=== PATIENT | female | born 1935 | race Caucasian/White ===

== ENCOUNTER → 2017-10-23 17:55 | Outpatient (CLI) | payer MEDICARE, SELFPAY | PROVIDERS: Family Provider Family Medicine; PCP Family Medicine; Visit Provider Family Medicine | DX: M54.5 Low back pain (principal); R30.0 Dysuria | CPT/HCPCS: 87086; 87088 ==

== ENCOUNTER → 2018-04-01 17:44 | Outpatient (CLI) | payer MEDICARE, SELFPAY | PROVIDERS: Family Provider Family Medicine; PCP Family Medicine; Visit Provider Nurse Practitioner Family | DX: R30.0 Dysuria (principal) | CPT/HCPCS: 87086; 87088; 87186 ==

== ENCOUNTER → 2019-10-01 12:34 | Outpatient (CLI) | payer MEDICARE, SELFPAY ==
[2019-10-01 15:58] LABS: Hemoglobin 12.3 g/dL (12.0-15.0); Mean Corp Hgb Conc 31.5 g/dL (32-36); Mean Corpuscular Hgb 31.1 pg (27.0-32.0); Mean Corpuscular Volume 98.7 fL (81-99); Mean Platelet Vol. 10.6 fl (6.2-12.0); Platelet Count 247 K/mm3 (150-450); RBC Distribution Width CV 14.5 % (11.6-14.6); RBC Distribution Width SD 52.7 fl (35.1-43.9); Red Blood Count 3.95 M/mm3 (4.2-5.4); White Blood Count 5.5 K/mm3 (4.4-11.0)
[2019-10-01 16:28] LABS: AST(SGOT) 16 U/L (15-37); Alanine Aminotransfer ALT/SGPT 20 U/L (13-56); Albumin, Serum 3.4 g/dL (3.2-5.0); Alkaline Phosphatase 66 U/L (45-117); Anion Gap 4 (5-15); BUN 19 mg/dL (7-18); BUN/Creat Ratio 20.2 RATIO (10-20); Calcium,Total 8.7 mg/dL (8.5-10.1); Chloride 105 mmol/L (98-107); Cholesterol 204 mg/dL (200); Creatinine, Serum 0.94 mg/dL (0.55-1.02); EST Glomerular Filtration Rate 60 mL/min (>60); Est Glom Filt Rate - Afr Amer 73 mL/min (>60); Globulin 3.4 g/dL (2.2-4.2); Glucose 82 mg/dL (74-106); High Density Lipoprotein 38 mg/dL; Potassium 4.3 mmol/L (3.5-5.1); Protein, Total 6.8 g/dL (6.4-8.2); Sodium Level 137 mmol/L (136-145); Thyroid Stim Hormone (TSH) 3.45 uIU/mL (0.358-3.74); Triglycerides 139 mg/dL; Uric Acid 5.1 mg/dL (2.6-6.0); Very Low Density Lipoprotein 28 mg/dL (5-40)
== END ==
PROVIDERS: PCP Family Medicine; Referring Provider Family Medicine; Visit Provider Family Medicine
DX: R60.0 Localized edema (principal); R79.89 Other specified abnormal findings of blood chemistry; I10 Essential (primary) hypertension; R73.02 Impaired glucose tolerance (oral); M10.9 Gout, unspecified
CPT/HCPCS: 36415; 80053; 80061; 84443; 84550; 85027

== ENCOUNTER 2021-03-30 11:53 | Outpatient (CLI) | payer MEDICARE, SELFPAY ==
[2021-03-30 15:38] LABS: Anion Gap 8 (5-15); BUN 17 mg/dL (7-18); BUN/Creat Ratio 15.9 RATIO (10-20); Chloride 108 mmol/L (98-107); Cholesterol 229 mg/dL (200); Creatinine, Serum 1.07 mg/dL (0.55-1.02); EST Glomerular Filtration Rate 52 mL/min (>60); Est Glom Filt Rate - Afr Amer 62 mL/min (>60); Glucose 93 mg/dL (74-106); High Density Lipoprotein 40 mg/dL; Potassium 4.4 mmol/L (3.5-5.1); Sodium Level 137 mmol/L (136-145); Thyroid Stim Hormone (TSH) 4.04 uIU/mL (0.358-3.74); Triglycerides 149 mg/dL; Uric Acid 5.1 mg/dL (2.6-6.0); Very Low Density Lipoprotein 30 mg/dL (5-40)
[2021-03-31 09:53] LABS: T4 Free Direct 1.05 ng/dL (0.76-1.46)
== END 2021-03-30 23:59 | disposition home or self-care (01) ==
LOC: MFPLAB 11:56
PROVIDERS: PCP Family Medicine; Referring Provider Family Medicine; Visit Provider Family Medicine
DX: I10 Essential (primary) hypertension (principal)
CPT/HCPCS: 36415; 80048; 80061; 84439; 84443; 84550

== ENCOUNTER 2021-04-18 11:06 | Outpatient (CLI) | payer MEDICARE, SELFPAY ==
[2021-04-18 12:39] LABS: Absolute Lymphocyte Count 0.96 X10^3/uL (0.83-4.51); Absolute Neutrophil Count 5.6 X10^3/uL (2.0-7.7); Basophil# 0.05 X10^3/uL; Basophil% 0.7 % (0-1); Eosinophils% 1.4 % (0-5); Hematocrit 42.9 % (37-47); Hemoglobin 14.4 g/dL (12.0-15.0); Lymphocyte # 0.96 X10^3/ul (0.83-4.51); Mean Corp Hgb Conc 33.6 g/dL (32-36); Mean Corpuscular Hgb 31.4 pg (27.0-32.0); Mean Corpuscular Volume 93.7 fL (81-99); Mean Platelet Vol. 10.8 fl (6.2-12.0); Monocyte# 0.63 X10^3/uL; Monocyte% 8.5 % (0-10); NRBC Flagged by Analyzer 0 % (0-5); Neutrophil # 5.59 X10^3/uL (2.7-7.7); Neutrophil % 75.9 % (47-70); Platelet Count 267 K/mm3 (150-450); RBC Distribution Width CV 14.2 % (11.6-14.6); RBC Distribution Width SD 48.6 fl (35.1-43.9); Red Blood Count 4.58 M/mm3 (4.2-5.4); White Blood Count 7.4 K/mm3 (4.4-11.0)
== END 2021-04-18 23:59 | disposition home or self-care (01) ==
PROVIDERS: PCP Family Medicine; Referring Provider Nurse Practitioner Adult Health; Visit Provider Nurse Practitioner Adult Health
DX: R10.84 Generalized abdominal pain (principal)
CPT/HCPCS: 36415; 85025

== ENCOUNTER 2021-06-20 11:09 | Day surgery (SDC) | payer MEDICARE, SELFPAY ==
[2021-06-20] VITALS (7 sets, daily range): BP systolic 88–148; BP diastolic 55–73; PULSE 58–91; RESP 16–17; TEMP 36.2–36.4; O2SAT 92–97
--- NOTE | 2021-06-20 | COLBX_PTH ---
PATIENT: DEANNA CARBAJAL LOC: EN U#:[id number] AGE/SX: 86/F ROOM: RE06/20/[address]: Dr. Sadi Molina DO : 1935 BED: DIS: 06/20/2021 SPEC #: [id number] RECD: 06/20/21 13:45 STATUS: DWIGHT CORNELIO #: [id number] ESTHELA: 06/20/21 00:[address]: Sadi Molina DEPT: SURGICAL PATHOLOGY RECD BY: Maciej Sarmiento ENTERED: 06/21/21 08:04 SP TYPE: COLON BX OTHR DR: Dr. Shant Del Valle MD Tissues: A - Duodenum, NOS B - Esophageal mucous membrane C - Ileum, NOS D - Ileum, NOS E - COLON BIOPSY Procedures: Special Stain Group II Surgery Specimen Level IV Alcian Blue/PAS (control) HEADER OPERATION: Colonoscopy, EGD with biopsies ([facility] [place]) PRE-OP DIAGNOSIS: Stomach cramps, epigastric pain, diarrhea TISSUE SUBMITTED: A ? Duodenum biopsy, B ? Distal esophagus biopsy, C ? Terminal ileum biopsy, D ? Ileocecal valve biopsy, E ? Random colon biopsy MICROSCOPIC DIAGNOSIS A. 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 B. Distal esophagus, biopsy: A fragment of gastroesophageal mucosa with chronic inflammation. Intestinal metaplasia (goblet cell metaplasia) not identified. See comment. C. Terminal ileum, biopsy: Fragments of small intestinal mucosa, no pathologic diagnosis. See comment. D. Ileocecal valve, biopsy: Fragments of tubulovillous adenoma. Fragments of fecal material. E. Colon, random biopsy: Fragments of colonic mucosa, no pathologic diagnosis. SJ:dayne 06/22/2021 COMMENT B. Alcian blue/PAS stain with matched control is used in the evaluation of the specimen. C. Prominent lymphoid aggregates are noted. MICROSCOPIC DESCRIPTION Slides are reviewed. GROSS DESCRIPTION A - Received in fixative is one container labeled with the patient's name and designated duodenum biopsy. The specimen consists of two irregular fragments of light almeida soft tissue that in aggregate measure 0.5 x 0.3 x 0.1 cm. The specimen is totally submitted in one cassette. B - Received in fixative is one container labeled with the patient's name and designated distal esophagus biopsy. The specimen consists of one irregular fragment of light almeida soft tissue that measures 0.3 x 0.3 x 0.1 cm. The specimen is totally submitted in one cassette. C - Received in fixative is one container labeled with the patient's name and designated terminal ileum biopsy. The specimen consists of two irregular fragments of light almeida soft tissue that in aggregate measure 0.6 x 0.3 x 0.1 cm. The specimen is totally submitted in one cassette. D - Received in fixative is one container labeled with the patient's name and designated ileocecal valve biopsy. The specimen consists of multiple irregular fragments of light almeida soft tissue mixed with fecal material that in aggregate measure 2.5 x 1 x 0.2 cm. The specimen is totally submitted in one cassette. E - Received in fixative is one container labeled with the patient's name and designated random colon biopsy. The specimen consists of multiple irregular fragments of light almeida soft tissue that in aggregate measure 1 x 0.5 x 0.1 cm. The specimen is totally submitted in one cassette. / SJ:rg 06/21/2021 TC:1 CPT: 36784 x5
--- NOTE | 2021-06-20 11:22 | PCM.HP.BLA ---
History and Physical Date of Admission: 06/20/21 DEANNA CARBAJAL, is an 86 F who presents to the office today for stomach cramping, concern for possible ulcer. She is accompanied by her daughter and [id number]. Her granddaughter is primary care physician Dr. Estuardo Landeros. She has recurrent stomach distress and cramping. Epigastric pain has been intermittent for the several years but increased frequency lately. She has a prescription for dicyclomine for history of IBS, she has not been taking it because she forgot what the medication was for. She started taking omeprazole once daily a week ago, too soon to tell if it is helping. She has been taking probiotics for years, since before she had C. difficile colitis which was about 10 years ago. She gets intermittent diarrhea, that can occur after the upper abdominal cramping occurs, it tends to be worse when she is anxious. No melena or hematochezia. No dysphagia, heartburn, acid reflux, cough. No constipation. Poor appetite since her 2-1/2 years ago. She has had some weight loss. She takes meloxicam once a day for chronic back pain. Review of prior records shows history of open dissection for small bowel obstruction and adhesions, ventral hernia repair. She is a retired kindergarten classroom teacher ROS Const Constitutional: No fatigue, fever(s), headache(s), weight change, sleep problems, abnormal sleep pattern or change in appetite ENT ENT: No headache(s), difficulty swallowing, hoarseness or sore throat Resp Respiratory: No cough, hemoptysis or shortness of breath Cardio Cardiology: No chest pain at rest or generalized swelling Gastro GI: Positive for nausea/dyspepsia; No abdominal pain, belching, bloating, change in bowel habits, change in stool character, coffee ground emesis, constipation, cramping, diarrhea, heartburn, difficulty swallowing, feeling full early, excessive flatus, incontinent of stools, Vomiting blood/hematemesis, Blood in stool, loose stools, Black,tarry stools, pain with swallowing or vomiting Musc Musculoskeletal: Positive for back pain; No joint pain, joint swelling, numbness or tingling Skin Skin: No itchy eyes or rash Neuro Neurology: No behavioral changes, confusion, headache(s), numbness or tingling Psych Psychiatric: No abnormal sleep pattern, Positive for anxiety, No behavioral changes, No change in appetite, No confusion and No depression Endo Endocrine: No cold intolerance, fatigue, heat intolerance, increased thirst/drinking or weight change Aller/Imm Allergy/Immunologic: No food intolerance or itchy eyes Iwlliam/Lymp Hematologic/Lymphatic: No easy bleeding, easy bruising or enlarged lymph nodes Exam Const General: cooperative, comfortable, no acute distress, well developed and well groomed Chest Chest palpation & inspection: normal inspection of the chest Resp Effort & Inspection: normal respiratory effort GI Inspection: normal to inspection Palpation: soft and nontender Psych Mental Status: mental status grossly normal Mood: congruent mood Affect: normal affect Quality Reporting Tobacco Screening ([facility]) Smoking Status: Never smoker Assessment and Plan Assessment and Plan (1) Stomach cramps, generalized: Status: Acute (2) Epigastric pain: Status: Acute (3) Diarrhea: Status: Acute Orders: Orders: CBC W/Diff, Automated Today R10.84 Plan: 86-year-old female with epigastric pain, stomach cramping, diarrhea. She has a history of IBS we need to rule out other causes for her symptoms. We need to evaluate for gastric or duodenal ulcers, microscopic colitis or other. She does take meloxicam for back pain. Continue omeprazole once daily. Stop Pepto-Bismol. She can take dicyclomine 10 mg as needed, it looks like her prescription is written for once a day as needed. She will be scheduled for EGD and colonoscopy. CBC will be drawn today. Call KEITH Willis with results, scheduling. I have re-examined the patient. There are no clinical changes since date of exam.
[2021-06-20] MEDS: Lactated Ringers 1,000 ML 15 ML IV ×2 (11:45→13:38)
[2021-06-20] MEDS: 0.9% Normal Saline (Pres. free 10 ML Vial (13:10)
[2021-06-20] MEDS: Epinephrine (1 mg/ml) 1 MG/ML VIAL (13:10)
--- NOTE | 2021-06-20 13:27 | OP.EGD_ITS ---
Patient Name: Shannan Gunter Procedure Date: 06/20/2021 12:11 PM Date of : 1935 Age: 86 Procedure: Upper GI endoscopy Indications: Epigastric abdominal pain, Failure to respond to medical treatment Providers: Sadi Molina DO Medicines: Monitored Anesthesia Care Patient Profile: This is an 86 year old female. Refer to note in patient chart for documentation of history and physical. Patient has symptoms of acute abdominal cramping and chronic abdominal distention. Complications: No immediate complications. Procedure: Pre-Anesthesia Assessment: - Prior to the procedure, a History and Physical was performed, and patient medications and allergies were reviewed. The patient is competent. The risks and benefits of the procedure and the sedation options and risks were discussed with the patient. All questions were answered and informed consent was obtained. Patient identification and proposed procedure were verified by the physician in the pre-procedure area. Mental Status Examination: alert and oriented. Airway Examination: normal oropharyngeal airway and neck mobility. Respiratory Examination: clear to auscultation. CV Examination: normal. Prophylactic Antibiotics: The patient does not require prophylactic antibiotics. Prior Anticoagulants: The patient has taken no previous anticoagulant or antiplatelet agents. After reviewing the risks and benefits, the patient was deemed in satisfactory condition to undergo the procedure. The anesthesia plan was to use moderate sedation / analgesia (conscious sedation). Immediately prior to administration of medications, the patient was re-assessed for adequacy to receive sedatives. The heart rate, respiratory rate, oxygen saturations, blood pressure, adequacy of pulmonary ventilation, and response to care were monitored throughout the procedure. The physical status of the patient was re-assessed after the procedure. After obtaining informed consent, the endoscope was passed under direct vision. Throughout the procedure, the patient's blood pressure, pulse, and oxygen saturations were monitored continuously. The colonoscope was introduced through the mouth, and advanced to the second part of duodenum. The upper GI endoscopy was accomplished without difficulty. The patient tolerated the procedure well. Scope In: 12:24:34 PM Scope Out: 12:28:18 PM Total Procedure Duration Time 0 hours 3 minutes 44 seconds Findings: LA Grade A (one or more mucosal breaks less than 5 mm, not extending between tops of 2 mucosal folds) esophagitis with no bleeding was found 39 to 40 cm from the incisors. Biopsies were taken with a cold forceps for histology. Verification of patient identification for the specimen was done. Estimated blood loss was minimal. A small hiatal hernia was present. Moderately erythematous mucosa without active bleeding and with no stigmata of bleeding was found in the duodenal bulb. Biopsies were taken with a cold forceps for histology. This was biopsied with a cold forceps for histology. Verification of patient identification for the specimen was done. Estimated blood loss was minimal. Impression: - LA Grade A reflux esophagitis. Biopsied. Recommendation: - Discharge patient to home. - Resume previous diet. - Continue present medications. - Await pathology results. - Repeat upper endoscopy in 1 year. - Return to GI clinic. Procedure Code(s): --- Professional --- 73414, Esophagogastroduodenoscopy, flexible, transoral; with biopsy, single or multiple CPT copyright 2017 [employer]. All rights reserved. The codes documented in this report are preliminary and upon head bellhop captain review may be revised to meet current compliance requirements. Sadi Molina DO 06/20/2021 1:27:31 PM This report has been signed electronically. Number of Addenda: 1 Note Initiated On: 06/20/2021 12:11 PM Addendum Number: 1 Addendum Date: 11/11/2021 6:25:57 AM MAC was used as sedation for this procedure. Sadi Molina DO 11/11/2021 6:26:01 AM This report has been signed electronically.
--- NOTE | 2021-06-20 13:28 | OP.CCLET_ITS ---
11/11/2021 Noé Del Valle [address] [place] [address] Re : Upper GI endoscopy procedure for Shannan Gunter Dear Dr. Del Valle This procedure was performed on Sunday, June 20, 2021. My impressions and recommendations are as follows: Impressions : - LA Grade A reflux esophagitis. Biopsied. Recommendations : - Discharge patient to home. - Resume previous diet. - Continue present medications. - Await pathology results. - Repeat upper endoscopy in 1 year. - Return to GI clinic. My findings are described in the full procedure note, which is enclosed. If I can be of further assistance, please feel free to contact me at . Sincerely, Sadi Molina, 06/20/2021 1:27:31 PM This report has been signed electronically.
--- NOTE | 2021-06-20 13:37 | OP.COLON_ITS ---
Patient Name: Shannan Gunter Procedure Date: 06/20/2021 12:07 PM Date of : 1935 Age: 86 Procedure: Colonoscopy Indications: Chronic diarrhea Providers: Sadi Molina DO Medicines: Monitored Anesthesia Care Patient Profile: This is an 86 year old female. Refer to note in patient chart for documentation of history and physical. Last Colonoscopy: several years ago. Complications: No immediate complications. Procedure: Pre-Anesthesia Assessment: - Prior to the procedure, a History and Physical was performed, and patient medications and allergies were reviewed. The patient is competent. The risks and benefits of the procedure and the sedation options and risks were discussed with the patient. All questions were answered and informed consent was obtained. Patient identification and proposed procedure were verified by the physician in the pre-procedure area. Mental Status Examination: alert and oriented. Airway Examination: normal oropharyngeal airway and neck mobility. CV Examination: normal. Prophylactic Antibiotics: The patient does not require prophylactic antibiotics. Prior Anticoagulants: The patient has taken no previous anticoagulant or antiplatelet agents. After reviewing the risks and benefits, the patient was deemed in satisfactory condition to undergo the procedure. The anesthesia plan was to use moderate sedation / analgesia (conscious sedation). Immediately prior to administration of medications, the patient was re-assessed for adequacy to receive sedatives. The heart rate, respiratory rate, oxygen saturations, blood pressure, adequacy of pulmonary ventilation, and response to care were monitored throughout the procedure. The physical status of the patient was re-assessed after the procedure. After I obtained informed consent, the scope was passed under direct vision. Throughout the procedure, the patient's blood pressure, pulse, and oxygen saturations were monitored continuously. The colonoscope was introduced through the anus and advanced to the terminal ileum. The colonoscopy was performed without difficulty. The patient tolerated the procedure well. The quality of the bowel preparation was good. Moderate Sedation: Moderate (conscious) sedation was administered by the endoscopy nurse and supervised by the endoscopist. The patient's oxygen saturation, heart rate, blood pressure and response to care were monitored. Total physician intraservice time was 15 minutes. Scope In: 12:31:13 PM Scope Withdrawal Time 0 hours 15 minutes 33 seconds Scope Out: 1:16:23 PM Total Procedure Duration Time 0 hours 45 minutes 10 seconds Findings: Hemorrhoids were found on perianal exam. A 20 mm polyp was found in the ileocecal valve. The polyp was sessile. Area was successfully injected with 5 mL of a 1:10,000 solution of epinephrine for lesion assessment, and this injection appeared to lift the lesion adequately. Estimated blood loss was minimal. The polyp was removed with a hot snare. The polyp was removed with a saline injection-lift technique using a hot snare. Resection and retrieval were complete. Verification of patient identification for the specimen was done. Estimated blood loss was minimal. A localized area of moderately nodular mucosa was found at the ileocecal valve. Biopsies were taken with a cold forceps for histology. Verification of patient identification for the specimen was done. Estimated blood loss was minimal. A patchy area of mucosa in the terminal ileum was mildly friable with contact bleeding. Biopsies were taken with a cold forceps for histology. Verification of patient identification for the specimen was done. Estimated blood loss was minimal. An area of mildly congested mucosa was found in the sigmoid colon, in the descending colon, in the transverse colon and in the ascending colon. Biopsies were taken with a cold forceps for histology. Verification of patient identification for the specimen was done. Estimated blood loss was minimal. Multiple small and large-mouthed diverticula were found in the recto-sigmoid colon, sigmoid colon and descending colon. A few small localized angiodysplastic lesions with bleeding were found in the ascending colon. Coagulation for bleeding prevention using argon plasma at 0.3 liters/minute and 20 [place] was successful. Estimated blood loss was minimal. Impression: - Hemorrhoids found on perianal exam. - No specimens collected. Recommendation: - Discharge patient to home. - Resume previous diet. - No aspirin, ibuprofen, naproxen, or other non-steroidal anti-inflammatory drugs for 7 days after polyp removal. - Await pathology results. - Repeat colonoscopy for surveillance based on pathology results. - Return to GI office. Procedure Code(s): --- Professional --- 76258, 59, Colonoscopy, flexible; with control of bleeding, any method 16888, Colonoscopy, flexible; with removal of tumor(s), polyp(s), or other lesion(s) by snare technique 49332, 59, Colonoscopy, flexible; with directed submucosal injection(s), any substance 79269, 59, Colonoscopy, flexible; with biopsy, single or multiple G0500, Moderate sedation services provided by the same physician or other qualified health career technical education teacher performing a gastrointestinal endoscopic service that sedation supports, requiring the presence of an independent trained observer to assist in the monitoring of the patient's level of consciousness and physiological status; initial 15 minutes of intra-service time; patient age 5 years or older (additional time may be reported with 35666, as appropriate) CPT copyright 2017 [employer]. All rights reserved. The codes documented in this report are preliminary and upon oxyacetylene welder review may be revised to meet current compliance requirements. Sadi Molina DO 06/20/2021 1:37:17 PM This report has been signed electronically. Number of Addenda: 1 Note Initiated On: 06/20/2021 12:07 PM Addendum Number: 1 Addendum Date: 11/11/2021 6:26:09 AM MAC was used as sedation for this procedure. Sadi Molina DO 11/11/2021 6:26:15 AM This report has been signed electronically.
--- NOTE | 2021-06-20 13:38 | OP.CCLET_ITS ---
11/11/2021 Noé Del Valle [address] [place] [address] Re : Colonoscopy procedure for Shannan Gunter Dear Dr. Del Valle This procedure was performed on Sunday, June 20, 2021. My impressions and recommendations are as follows: Impressions : - Hemorrhoids found on perianal exam. - No specimens collected. Recommendations : - Discharge patient to home. - Resume previous diet. - No aspirin, ibuprofen, naproxen, or other non-steroidal anti-inflammatory drugs for 7 days after polyp removal. - Await pathology results. - Repeat colonoscopy for surveillance based on pathology results. - Return to GI office. My findings are described in the full procedure note, which is enclosed. If I can be of further assistance, please feel free to contact me at . Sincerely, Sadi Molina, 06/20/2021 1:37:17 PM This report has been signed electronically.
== END 2021-06-20 14:15 | disposition home or self-care (01) ==
LOC: EN 11:14 → AC 11:15
PROVIDERS: PCP Family Medicine; Referring Provider Family Medicine; Visit Provider Internal Medicine Gastroenterology
PROC: 0DJD8ZZ Inspection of Lower Intestinal Tract, Via Natural or Artificial Opening Endoscopic (ICD-10-PCS; CPT 45378; principal; 2021-06-20 12:25)
DX: K21.00 Gastro-esophageal reflux disease with esophagitis, without bleeding (principal); D12.0 Benign neoplasm of cecum; K64.9 Unspecified hemorrhoids; I10 Essential (primary) hypertension; M19.90 Unspecified osteoarthritis, unspecified site; K31.89 Other diseases of stomach and duodenum; Z79.899 Other long term (current) drug therapy
CPT/HCPCS: 45385; 45380; 43239; 45382; 45381; 87811; 88305; 88313; J7120; J2405; J3490

== ENCOUNTER → 2021-09-27 | Outpatient (CLI) | payer MEDICARE, SELFPAY ==
[2021-09-27 13:09] LABS: T4 Free Direct 1.02 ng/dL (0.76-1.46); Thyroid Stim Hormone (TSH) 3.99 uIU/mL (0.358-3.74)
== END | disposition home or self-care (01) ==
LOC: MFPLAB 10:39
PROVIDERS: PCP Family Medicine; Referring Provider Family Medicine; Visit Provider Family Medicine
DX: E78.00 Pure hypercholesterolemia, unspecified (principal); E05.90 Thyrotoxicosis, unspecified without thyrotoxic crisis or storm
CPT/HCPCS: 36415; 84439; 84443

== ENCOUNTER 2022-04-28 12:30 | Inpatient (IN) | payer MEDICARE, SELFPAY ==
[2022-04-28] VITALS (7 sets, daily range): BP systolic 78–117; BP diastolic 55–105; PULSE 64–82; RESP 16–18; TEMP 36.4–37.3; O2SAT 92–98; BMI 25.1; BMI 24.0
--- NOTE | 2022-04-28 13:10 | CT_ITS ---
HISTORY: Altered mental status. TECHNIQUE: Multiple axial images were obtained of the head without intravenous contrast. A radiation dose optimization technique was used for this scan. 465 images. COMPARISON: None. FINDINGS: BRAIN PARENCHYMA: Multiple foci and zones of low attenuation in the bilateral cerebral white matter compatible with chronic small vessel ischemic gliosis. No acute intra-axial hemorrhage identified. CSF SPACES: Generalized volume loss. No midline shift or other significant mass effect. No acute extra-axial hemorrhage seen. OTHER: Intact calvarium. No significant air fluid levels in the paranasal sinuses or mastoid air cells. Unremarkable orbits. CT/Brain/Head without Contrast IMPRESSION: No acute intracranial process identified. Chronic involutional and white matter changes. Electronically Signed: Corinna Dunham MD at 14:52 EDT ,
--- NOTE | 2022-04-28 13:10 | EKG12_ITS ---
Test Reason : Blood Pressure : / mmHG Vent. Rate : 075 BPM Atrial Rate : 075 BPM P-R Int : 214 ms QRS Dur : 132 ms QT Int : 486 ms P-R-T Axes : 024 -70 -15 degrees QTc Int : 542 ms Sinus rhythm with 1st degree A-V block with Premature supraventricular complexes Right bundle branch block Left anterior fascicular block Bifascicular block Abnormal ECG Confirmed by LISA CRUZ, ANNA ([id number]), rewrite editor BEVERLY GRIMES ([id number]) on 05/01/2022 12:23:13 P M Referred By: KVNG/EMERY Confirmed By:ANIL GONZALEZ MD
[2022-04-28 14:28] LABS: Absolute Lymphocyte Count 0.68 X10^3/uL (0.83-4.51); Absolute Neutrophil Count 6.8 X10^3/uL (2.0-7.7); Basophil# 0.03 X10^3/uL; Basophil% 0.4 % (0-1); Eosinophil# 0.07 X10^3/uL; Eosinophils% 0.8 % (0-5); Hematocrit 40.7 % (37-47); Hemoglobin 14.2 g/dL (12.0-15.0); Lymphocyte # 0.68 X10^3/ul (0.83-4.51); Lymphocyte % 8.2 % (19-41); Mean Corp Hgb Conc 34.9 g/dL (32-36); Mean Corpuscular Hgb 32.9 pg (27.0-32.0); Mean Corpuscular Volume 94.2 fL (81-99); Mean Platelet Vol. 12.2 fl (6.2-12.0); Monocyte# 0.68 X10^3/uL; Monocyte% 8.2 % (0-10); NRBC Flagged by Analyzer 0.5 % (0-5); Neutrophil # 6.84 X10^3/uL (2.7-7.7); Neutrophil % 81.9 % (47-70); Platelet Count 203 K/mm3 (150-450); RBC Distribution Width CV 16.2 % (11.6-14.6); RBC Distribution Width SD 55.4 fl (35.1-43.9); Red Blood Count 4.32 M/mm3 (4.2-5.4); White Blood Count 8.3 K/mm3 (4.4-11.0)
[2022-04-28 14:32] LABS: International Normalized Ratio 1.9
--- NOTE | 2022-04-28 14:32 | RAD_ITS ---
HISTORY: Confusion. TECHNIQUE: XR Chest 1 View. COMPARISON: None. FINDINGS: CARDIOMEDIASTINAL BORDERS: Cardiac silhouette moderately enlarged. Calcification of the aorta. LUNGS: Calcified granuloma in the left midlung. Mild linear bibasilar opacities. PLEURA: Mild blunting of both costophrenic angles. OSSEOUS STRUCTURES: Degenerative change. RAD/Chest 1 View (Portable) IMPRESSION: Cardiomegaly with mild pleural effusions. Bibasilar atelectasis or inflammation. Electronically Signed: Corinna Dunham MD at 14:47 EDT ,
[2022-04-28 14:33] LABS: Partial Thromboplast Time 40.1 Seconds (24.1-36.2)
[2022-04-28 14:41] LABS: ALB/GLOB Ratio 0.7 RATIO (0.9-2.4); AST(SGOT) 11 U/L (15-37); Alanine Aminotransfer ALT/SGPT 17 U/L (13-56); Albumin, Serum 2.6 g/dL (3.2-5.0); Alkaline Phosphatase 51 U/L (45-117); Anion Gap 10 (5-15); BUN 52 mg/dL (7-18); BUN/Creat Ratio 29.7 RATIO (10-20); Calcium,Total 9.1 mg/dL (8.5-10.1); Chloride 97 mmol/L (98-107); Creatinine, Serum 1.75 mg/dL (0.55-1.02); EST Glomerular Filtration Rate 29 mL/min (>60); Est Glom Filt Rate - Afr Amer 35 mL/min (>60); Globulin 3.5 g/dL (2.2-4.2); Glucose 120 mg/dL (74-106); Potassium 4.4 mmol/L (3.5-5.1); Protein, Total 6.1 g/dL (6.4-8.2); Sodium Level 132 mmol/L (136-145); Troponin-I HS 13 pg/mL (3.0-54.0)
--- NOTE | 2022-04-28 14:46 | CM.ED ---
Addendum entered by Steph Baugh 04/28/22 15:34: SW met with patient's daughter, son and daughter in law outside of patient's room due to patient's confusion. SW inquired about patient's symptoms and thoughts regarding hospice/palliative care. Patient's family explained [facility] encouraged them to bring the patient into the ED due to bed sores and confusion. Patient's family explained the patient has been at [facility] since January and continuing to decline. Patient's family also report patient's PCP had recommended Hospice and believed the PCP made a referral to the [place] location. Patient's daughter, Jody, reports she is the patient's HCPOA and patient's son is patient's financial power of criminal attorney. Patient's family plans to bring documents in while patient is at [facility]. Patient's family is interested in completing Living Will, BING explained due to patient's current confusion it would not be appropriate but could be completed at a later time if patient's condition improves. Patient's daughter wants to be Hospice first contact and daughter in law, Mark, is second contact. SW to follow up. SW contacted [facility] in [place] to inquire about a referral for patient. Referral staff report having a referral from [facility] and left a message with patient's son to discuss services. SW explained the patient is currently in the ED and will be admitted. SW briefly reviewed current concerns and family's interest in services. BING also provided staff with contact information for Jody and Mark per their request. Scheduling staff to contact patient's family to schedule with patient while at [facility]. SW updated MD Briggs of referral and plan for Hospice to meet with patient and family while at [facility]. confirms patient will be admitted. SW contacted patient's daughter, Jody and provided her an update regarding [facility] contacting her to schedule an assessment time to meet with patient and family at [facility]. Patient's daughter voiced understanding and voiced no other needs or concerns. Plan: admit to [facility], Hospice to contact family to schedule assessment time at [facility]. Steph Baugh HOGSHEAD OPENER, AIR POLLUTION INSPECTOR Original Note: Social Work Note Referral Source: MD Briggs Referral Reason: hospice/palliative referral MD Briggs met with SW and reviewed presenting symptoms and concerns; explaining the patient is from [facility] and was encouraged to come into the ED due to possibly infected bed sores. Patient was encouraged to be admitted and discuss referral for hospice or palliative services. SW to follow up. SW met with patient and patient's family and introduced herself and role as [facility] Tire Bagger. Patient's daughter reported they wanted another family member present for the conversation regarding Hospice. SW provided patient's family with information on hospice and palliative services and will return to further discuss. SW returned to patient's room, no family present. Patient reports they should be right back at they went to get drinks or food. Steph Baugh MSW, [place]
[2022-04-28 14:54] LABS: Lactic Acid 2.1 mmol/L (0.4-1.9)
--- NOTE | 2022-04-28 15:00 | EX.ED.DYSGE1 ---
HPI History of Present Illness Chief Complaint: Alt LOC Informant: family Limited: other (Altered mental status, confusion) Onset/Context/Timing Onset: Today Context: Gradual Onset Timing: Continuous Quality: Confused Location: Generalized Worsened by: Nothing Relieved by: Nothing Narrative Narrative: Patient presents with altered mental status that became worse today. Patient has decubitus ulcers and [facility] staff is concerned that the patient may be developing sepsis from these. Family states the patient is normally awake, alert, oriented to person, place, and time. Currently, the patient is only oriented to herself. Patient thinks she is in [place]. Patient does not know what year it is. Family denies any fevers or chills. Family states patient does have a history of congestive heart failure and her last ejection fraction was approximately 25%. Family has not noticed any increase in swelling of her lower extremities. [facility] Medical History Ambulates with cane Arthritis Back pain Gastric reflux Gout History of IBS Hx SBO Hypertension IBS (irritable bowel syndrome) Non-smoker Wears glasses Wears hearing aid Home Medications allopurinol 100 mg tablet 200 mg PO BID 04/18/21 [History Last Taken 04/28/22] citalopram 20 mg tablet 20 mg PO DAILY 04/18/21 [History Last Taken 04/28/22] lorazepam 0.5 mg tablet 0.5 mg PO PRN PRN ANXIETY 06/17/21 [History Last Taken Unknown] dicyclomine 10 mg capsule 10 mg PO .qid PRN abdominal cramping #180 caps 07/19/21 [Rx Last Taken Unknown] omeprazole 20 mg capsule,delayed release 20 mg PO QAM #90 caps 07/19/21 [Rx Last Taken 04/28/22] colestipol 1 gram tablet 1 g PO QHS PRN diarrhea #30 tabs 11/25/21 [Rx Last Taken 04/27/22] Lactobacillus acidophilus 500 million cell tablet 500 mmu cells PO DAILY STOMACH 04/28/22 [History Last Taken 04/28/22] apixaban 2.5 mg tablet (Eliquis) 2.5 mg PO BID AFIB 04/28/22 [History Last Taken 04/28/22] ascorbic acid (vitamin C) 500 mg tablet (Vitamin C) 1,000 mg PO DAILY SUPPLEMENT 04/28/22 [History Last Taken 04/28/22] bumetanide 1 mg tablet 1 mg PO DAILY HEART FAILURE 04/28/22 [History Last Taken 04/28/22] carvedilol 3.125 mg tablet 3.125 mg PO BID AFIB 04/28/22 [History Last Taken 04/28/22] omega-3 fatty acids 1,000 mg capsule 1,000 mg PO DAILY SUPPLEMENT 04/28/22 [History Last Taken 04/28/22] potassium chloride 10 mEq tablet,extended release 10 meq PO DAILY SUPPLEMENT 04/28/22 [History Last Taken 04/28/22] Allergy/AdvReac Type Severity Reaction Status Date / Time No Known Allergies Allergy Verified 04/28/22 12:31 Family History Father Hypertension Mother Diabetes Surgical History Hx laparoscopic cholecystectomy Hx of hernia repair Hx of ventral hernia repair Social History Smoking Status: Never smoker alcohol intake: never substance use type: does not use what type of physical activity do you participate in: none ROS ROS ED Review of Systems ROS Unobtainable: due to mental condition Constitutional Constitutional ED: Denies chills or fever(s) Cardiovascular Cardiovascular: Denies chest pain or palpitations Respiratory/Chest Respiratory/Chest: Denies cough or dyspnea Gastrointestinal Gastrointestinal: Denies nausea or vomiting Integumentary Denies rash Neurologic Neurologic: Reports weakness Allergic/Immunologic Allergic/Immunologic ED: Denies mouth swelling or urticaria EXAM Physical Exam Const Vital Signs: 04/28/22 12:32 04/28/22 13:10 04/28/22 16:31 Temperature 98.2 F 97.5 F L Temperature Source Temporal Axillary Pulse Rate 82 64 Respiratory Rate 16 16 Blood Pressure 78/60 L 117/105 H Blood Pressure Mean 66 109 Pulse Ox 98 92 Oxygen Delivery Method Room Air Room Air Room Air 04/28/22 16:31 Temperature 97.5 F L Temperature Source Axillary Pulse Rate 64 Respiratory Rate 16 Blood Pressure 117/105 H Blood Pressure Mean 109 Pulse Ox 92 Oxygen Delivery Method Room Air Positive well developed General Appearance ED: well developed and NAD HEENT Reports dry mucous membranes Mouth ED: Yes dry mucous membranes Mouth: dry mucous membranes Eyes PERRL and EOMs intact bilaterally Neck supple and no JVD Resp normal respiratory effort and clear to auscultation bilaterally Cardio regular rate and regular rhythm GI normal to inspection, nondistended, normoactive bowel sounds and non-tender Auscultation: normoactive bowel sounds MDM MDM MDM Narrative Medical decision making narrative: Differential diagnosis includes sepsis, urinary tract infection, dehydration, electrolyte abnormality, stroke, encephalopathy, cardiac dysrhythmia, cardiac ischemia, and pneumonia. EKG will be obtained to assess for cardiac dysrhythmia and cardiac ischemia. Chest x-ray will be obtained to assess for pneumonia and congestive heart failure. CBC will be obtained to assess for leukocytosis and anemia. Comprehensive metabolic profile will be obtained to assess for electrolyte abnormality, renal function, and hepatic function. Serum ammonia level will be obtained to assess for encephalopathy. PT with INR and PTT will be obtained to assess for coagulopathy. Lactate will be obtained to assess for sepsis. High-sensitivity troponin will be obtained to assess for cardiac ischemia. Blood cultures were ordered to assess for bacteremia and sepsis. Urinalysis and urine culture will be obtained to assess for urinary infection. Wound cultures will be obtained to assess for wound infection. CT scan of the brain will be obtained to assess for stroke and intracranial bleeding. Lab Data Attestation: I reviewed the patient's lab results. Lab results narrative: CBC was reviewed and was within normal limits. Comprehensive metabolic profile was reviewed. Creatinine was elevated at 1.75 and BUN was 52. These were increased from previous results. Sodium was slightly low at 132 and chloride was slightly low at 97. The remainder was essentially within normal limits. Serum lactate was reviewed and was slightly elevated at 2.1. Urinalysis was reviewed. There is no evidence of urinary tract infection or hematuria. PT was INR and PTT were reviewed. Pro time was 21.0. INR was 1.9. PTT was 40.1. Labs: Laboratory Results - last 24 hr 04/28/22 04/28/22 04/28/22 14:05 14:05 14:05 WBC 8.3 RBC 4.32 Hgb 14.2 Hct 40.7 MCV 94.2 MCH 32.9 H MCHC 34.9 RDW Std Deviation 55.4 H RDW Coeff of Sanjuanita 16.2 H Plt Count 203 MPV 12.2 H Immature Gran % (Auto) 0.500 Neut % (Auto) 81.9 H Lymph % (Auto) 8.2 L [place] % (Auto) 8.2 Eos % (Auto) 0.8 Baso % (Auto) 0.4 Absolute Neuts (auto) 6.8 Absolute Lymphs (auto) 0.68 L Nucleated RBC % 0.5 PT 21.0 H INR 1.9 APTT 40.1 H Sodium 132 L Potassium 4.4 Chloride 97 L Carbon Dioxide 25.0 Anion Gap 10 BUN 52 H Creatinine 1.75 H Est GFR (MDRD) Af Amer 35 L Est GFR (MDRD) Non-Af 29 L BUN/Creatinine Ratio 29.7 H Glucose 120 H Lactic Acid Calcium 9.1 Total Bilirubin 0.80 AST 11 L ALT 17 Alkaline Phosphatase 51 Troponin I High Sens 13 Total Protein 6.1 L Albumin 2.6 L Globulin 3.5 Albumin/Globulin Ratio 0.7 L Urine Color Urine Clarity Urine pH Ur Specific [place] Urine Protein Urine Glucose (UA) Urine Ketones Urine Occult Blood Urine Nitrite Urine Bilirubin Urine Urobilinogen Ur Leukocyte Esterase Urine RBC Urine WBC Ur Squamous Epith Cells Urine Bacteria Urine Mucus 04/28/22 04/28/22 14:05 15:40 WBC RBC Hgb Hct MCV MCH MCHC RDW Std Deviation RDW Coeff of Sanjuanita Plt Count MPV Immature Gran % (Auto) Neut % (Auto) Lymph % (Auto) [place] % (Auto) Eos % (Auto) Baso % (Auto) Absolute Neuts (auto) Absolute Lymphs (auto) Nucleated RBC % PT INR APTT Sodium Potassium Chloride Carbon Dioxide Anion Gap BUN Creatinine Est GFR (MDRD) Af Amer Est GFR (MDRD) Non-Af BUN/Creatinine Ratio Glucose Lactic Acid 2.1 H* Calcium Total Bilirubin AST ALT Alkaline Phosphatase Troponin I High Sens Total Protein Albumin Globulin Albumin/Globulin Ratio Urine Color Yellow Urine Clarity Clear Urine pH 5.0 Ur Specific [place] 1.015 Urine Protein 15 H Urine Glucose (UA) Normal Urine Ketones Negative Urine Occult Blood Negative Urine Nitrite Negative Urine Bilirubin Negative Urine Urobilinogen Normal Ur Leukocyte Esterase 100 H Urine RBC 0 SEEN Urine WBC 0-5 SEEN Ur Squamous Epith Cells 0-5 SEEN Urine Bacteria 2+ Urine Mucus 0 SEEN Radiography Diagnostic Testing: Clinical Impression(s) from Imaging Studies Brain CT 04/28/22 13:10 IMPRESSION: No acute intracranial process identified. Chronic involutional and white matter changes. Electronically Signed: Corinna Dunham MD at 14:52 EDT , Chest X-Ray 04/28/22 14:32 IMPRESSION: Cardiomegaly with mild pleural effusions. Bibasilar atelectasis or inflammation. Electronically Signed: Corinna Dunham MD at 14:47 EDT , Chest x-ray was obtained. There is 1 view. On my independent interpretation, there is cardiomegaly and mild bilateral pleural effusions. There is bilateral atelectasis in the bases. There is no acute infiltrate noted. Radiologist also interpreted the x-rays and agrees. CT scan of the brain was obtained. There is no acute intracranial abnormality. There are chronic changes noted. This was interpreted by the radiologist and was also independently reviewed by myself. EKG Initial EKG: Attestation: I personally reviewed and interpreted this EKG as follows: Interpretation: Sinus Rhythm (75 with first-degree AV block), RBBB, LAFB and Non-Specific ST Changes Comments: EKG was obtained. On my interpretation, it shows a sinus rhythm with a first-degree AV block with a rate of 75. There are occasional PACs noted. There is right bundle branch block pattern noted. There is a left anterior fascicular block noted. There are no acute ST or T wave changes. TX interval was slightly prolonged at 214 ms. QRS interval was slightly prolonged at 132 ms. QTc interval was slightly prolonged at 542 ms. There is left axis deviation at -70. Prior EKG tracings: not available for review Prior: No Prior Treatment and Re-Evaluation :: The patient was given IV fluids. Because of her history of congestive heart failure, patient was only given a 500 cc bolus. Case was discussed with geriatric social work professor who will be in to evaluate the patient discuss hospice and palliative treatment with the family. Blood cultures, urine culture and wound culture were obtained. Patient was started on Unasyn. Case was discussed with the hospitalist. She will admit the patient to her service. Family understands and is agreeable with the plan. All questions were answered. Discharge Plan Dx/Rx/DC Orders Clinical Impression: Acute confusion, Acute kidney injury, Decubitus ulcer Disposition Disposition: Acute Care Hospital [facility]
[2022-04-28 15:48] LABS: Mucous, Urine 0 SEEN /hpf (<or=2+); Red Blood Cells-Urine 0 SEEN /hpf (0-5)
[2022-04-28 15:50] LABS: Color, Urine Yellow (Yellow); Glucose, Dipstick Normal (Normal); Ketone-Dipstick Negative (Negative); Leukocyte Esterase-Dipstick 100 /ul (Negative); Nitrite-Dipstick Negative (Negative); Occult Blood-Urine Negative /ul (Negative); Protein-Dipstick 15 mg/dl (Negative); Specific Gravity, Urine 1.015 (1.002-1.030); Urine Bilirubin Dipstick Negative (Negative); Urine Clarity Clear (Clear); Urine Urobilinogen Normal (Normal)
[2022-04-28 16:05] LABS: Bacteria 2+ /hpf (None Seen); Squamous Epithelial Cells - UA 0-5 SEEN /hpf (5-10); White Blood Cells 0-5 SEEN /hpf (0-5)
--- NOTE | 2022-04-28 18:03 | PCM.HP.STD ---
HPI - General General Date of Admission: 04/28/22 Date of Service: 04/28/22 Chief Complaint: Altered mental status HPI Narrative DEANNA CARBAJAL, is a 87 F with a history of gout, GERD, hypertension, HFrEF, afib, who presented to [facility] 04/28/2022 with altered mental status from [place]. She had been progressively more altered and was noted to have decubitus ulcers at the retirement and was sent to the ED to be evaluated for sepsis. Her baseline is awake alert and oriented. Initially in ED she was only oriented to self. In the ED BUN was 52 with a creatinine of 175, sodium 132 and chloride 97. Serum lactate 2.1. INR 1.9. UA with bacteria and leuk esterase but no white blood cells and no nitrate, do not suspect UTI. Blood pressure initially was 78/60 but increased to 117/105 in the ED, heart rate 82, temperature 98.2, O2 98% on room air. Was noted to have the decubitus ulcers and concern for infection so she was given small bolus of fluid given her heart failure with reduced ejection fraction and she was given Unasyn and hospitalist consulted for admission. Seen with family at bedside, upon evaluation patient alert and oriented and feeling much better with the fluids and antibiotics. She had reported some poor p.o. intake and leg swelling but denied any other complaints. [facility] Medical History Ambulates with cane Arthritis Back pain Gastric reflux Gout History of IBS Hx SBO Hypertension IBS (irritable bowel syndrome) Non-smoker Wears glasses Wears hearing aid Home Medications allopurinol 100 mg tablet 200 mg PO BID 04/18/21 [History Last Taken 04/28/22] citalopram 20 mg tablet 20 mg PO DAILY 04/18/21 [History Last Taken 04/28/22] lorazepam 0.5 mg tablet 0.5 mg PO PRN PRN ANXIETY 06/17/21 [History Last Taken Unknown] dicyclomine 10 mg capsule 10 mg PO .qid PRN abdominal cramping #180 caps 07/19/21 [Rx Last Taken Unknown] omeprazole 20 mg capsule,delayed release 20 mg PO QAM #90 caps 07/19/21 [Rx Last Taken 04/28/22] colestipol 1 gram tablet 1 g PO QHS PRN diarrhea #30 tabs 11/25/21 [Rx Last Taken 04/27/22] Lactobacillus acidophilus 500 million cell tablet 500 mmu cells PO DAILY STOMACH 04/28/22 [History Last Taken 04/28/22] apixaban 2.5 mg tablet (Eliquis) 2.5 mg PO BID AFIB 04/28/22 [History Last Taken 04/28/22] ascorbic acid (vitamin C) 500 mg tablet (Vitamin C) 1,000 mg PO DAILY SUPPLEMENT 04/28/22 [History Last Taken 04/28/22] bumetanide 1 mg tablet 1 mg PO DAILY HEART FAILURE 04/28/22 [History Last Taken 04/28/22] carvedilol 3.125 mg tablet 3.125 mg PO BID AFIB 04/28/22 [History Last Taken 04/28/22] omega-3 fatty acids 1,000 mg capsule 1,000 mg PO DAILY SUPPLEMENT 04/28/22 [History Last Taken 04/28/22] potassium chloride 10 mEq tablet,extended release 10 meq PO DAILY SUPPLEMENT 04/28/22 [History Last Taken 04/28/22] Allergy/AdvReac Type Severity Reaction Status Date / Time No Known Allergies Allergy Verified 04/28/22 12:31 Family History Father Hypertension Mother Diabetes Surgical History Hx laparoscopic cholecystectomy Hx of hernia repair Hx of ventral hernia repair Social History Smoking Status: Never smoker alcohol intake: never substance use type: does not use what type of physical activity do you participate in: none ROS ROS Narrative General: Denies fever/chills HENT: Denies headache, denies stuffy nose, denies sore throat, wears hearing aids EYES: Denies changes in vision Resp: Denies cough, denies shortness of breath Cardiac: Denies chest pain GI: Denies abdominal pain, denies changes in bowel, denies nausea/vomiting : Denies changes in urination Extremity: Does have lower extremity edema that is 2-3+ pitting MSK: Denies weakness Neuro: Denies any numbness/tingling Heme: Denies any bleeding or bruising Skin: Has decubitus ulcers and small bulla on left lateral goldberg Psychiatric: No complaints voiced Vital Signs Vital Signs Vital Signs: 04/28/22 12:32 04/28/22 13:10 04/28/22 16:31 Temperature 98.2 F 97.5 F L Temperature Source Temporal Axillary Pulse Rate 82 64 Respiratory Rate 16 16 Blood Pressure 78/60 L 117/105 H Blood Pressure Mean 66 109 Pulse Ox 98 92 Oxygen Delivery Method Room Air Room Air Room Air 04/28/22 16:31 04/28/22 17:21 04/28/22 17:22 Temperature 97.5 F L 97.6 F L 97.6 F L Temperature Source Axillary Axillary Axillary Pulse Rate 64 67 67 Respiratory Rate 16 17 17 Blood Pressure 117/105 H 91/76 91/76 Blood Pressure Mean 109 81 81 Pulse Ox 92 95 94 Oxygen Delivery Method Room Air Room Air Room Air Weight Weight: 68.447 kg Body Mass Index (BMI) 25.1 Physical Exam Narrative General: Alert, oriented, no apparent distress HEENT: Atraumatic, normocephalic Eyes: Anicteric, normal conjunctiva, extraocular movements grossly intact Neck: Supple Respiratory: No wheezes or rhonchi,, normal respiratory effort Cardiovascular: Regular rate and rhythm GI: Soft, nontender, nondistended Extremities: 2-3+ lower extremity pitting edema Musculoskeletal: Moving all extremities Neuro: No overt focal neurological deficits Skin: Has some red splotches and a bulla on left lateral goldberg Psych: Cooperative Results Lab / Micro Data Result Diagrams: 04/28/22 14:05 04/28/22 14:05 Labs: Laboratory Results - last 24 hr 04/28/22 14:05: WBC 8.3, RBC 4.32, Hgb 14.2, Hct 40.7, MCV 94.2, MCH 32.9 H, MCHC 34.9, RDW Std Deviation 55.4 H, RDW Coeff of Sanjuanita 16.2 H, Plt Count 203, MPV 12.2 H, Immature Gran % (Auto) 0.500, Neut % (Auto) 81.9 H, Lymph % (Auto) 8.2 L, [place] % (Auto) 8.2, Eos % (Auto) 0.8, Baso % (Auto) 0.4, Absolute Neuts (auto) 6.8, Absolute Lymphs (auto) 0.68 L, Nucleated RBC % 0.5 04/28/22 14:05: PT 21.0 H, INR 1.9, APTT 40.1 H 04/28/22 14:05: Sodium 132 L, Potassium 4.4, Chloride 97 L, Carbon Dioxide 25.0, Anion Gap 10, BUN 52 H, Creatinine 1.75 H, Est GFR (MDRD) Af Amer 35 L, Est GFR (MDRD) Non-Af 29 L, BUN/Creatinine Ratio 29.7 H, Glucose 120 H, Calcium 9.1, Total Bilirubin 0.80, AST 11 L, ALT 17, Alkaline Phosphatase 51, Troponin I High Sens 13, Total Protein 6.1 L, Albumin 2.6 L, Globulin 3.5, Albumin/Globulin Ratio 0.7 L 04/28/22 14:05: Lactic Acid 2.1 H* 04/28/22 15:40: Urine Color Yellow, Urine Clarity Clear, Urine pH 5.0, Ur Specific [place] 1.015, Urine Protein 15 H, Urine Glucose (UA) Normal, Urine Ketones Negative, Urine Occult Blood Negative, Urine Nitrite Negative, Urine Bilirubin Negative, Urine Urobilinogen Normal, Ur Leukocyte Esterase 100 H, Urine RBC 0 SEEN, Urine WBC 0-5 SEEN, Ur Squamous Epith Cells 0-5 SEEN, Urine Bacteria 2+, Urine Mucus 0 SEEN Radiology Impression Brain CT 04/28/22 13:10 IMPRESSION: No acute intracranial process identified. Chronic involutional and white matter changes. Electronically Signed: Corinna Dunham MD at 14:52 EDT Reading Location ID and State: [facility] / [place] Tel , Service support , Chest X-Ray 04/28/22 14:32 IMPRESSION: Cardiomegaly with mild pleural effusions. Bibasilar atelectasis or inflammation. Electronically Signed: Corinna Dunham MD at 14:47 EDT , Assessment & Plan Assessment/Plan (1) Acute confusion: (2) Acute kidney injury: (3) Decubitus ulcer: PLAN: Plan #Decubitus ulcers -Concern for infection -Mental status improved significantly with antibiotics and fluids, will continue Unasyn -Only received 500 cc bolus given her history of heart failure but seem to respond to this -Wound care consult -Wound, blood, urine cultures obtained in ED #Metabolic encephalopathy -Resolved, likely secondary to WILLOW and underlying infection -CT brain with only chronic changes -Ammonia minimally high but given her significantly improved mental status do not feel we need lactulose at this time but I do have a baseline #WILLOW -Likely secondary to dehydration, received bolus in ED, will give another 500 cc at slow rate as she does have peripheral edema however appears very intravascularly dry #General debility -Palliative care/hospice discussions, presently is not hospice #History of heart failure with reduced ejection fraction -Per family last EF was 25%, this is not in our system however given she is not in exacerbation do not feel we need to reorder one at this time unless breathing becomes a problem or she appears more overloaded -Would benefit from elevating legs, usually uses YAHIR hose at home and may need to resume these -Chest x-ray in ED with no infiltrate but she does have cardiomegaly with mild bilateral pleural effusions and some atelectasis -Daily weights -Hold Bumex -Continue carvedilol #Atrial fibrillation -Continues to be on Eliquis #Gout -On allopurinol #DVT ppx: Takes Temiquis Chitra Lambert MD Time spent in the patient's overall evaluation,decision-making process, review of diagnostic data, adjustment of management, discussion with other providers, nursing nursing and ancillary staff involved in patient's care documentation, 60 minutes Charges/Coding Visit Charges Inpatient E&M: 22304 Init Hosp L2
[2022-04-28 18:11] LABS: Reflex Lactate? Y
[2022-04-28 19:09] LABS: Lactic Acid 1.4 mmol/L (0.4-1.9)
[2022-04-28] MEDS: 0.9% Normal Saline 1,000 ML 75 ML IV (19:40)
[2022-04-28] MEDS: MELATONIN 3 MG TABLET PO (20:19)
[2022-04-28] MEDS: Ensure Plus High Protein 120 ML LIQUID PO (20:19)
[2022-04-28] MEDS: Allopurinol 100 MG Tablet 200 MG PO (20:20)
[2022-04-28] MEDS: Acetaminophen 325 MG Tablet 650 MG PO (20:20)
[2022-04-28] MEDS: APIXABAN 2.5 MG TABLET (WCH) PO (20:24)
[2022-04-28] MEDS: Nystatin Powder 15gm Bottle 1 APPLIC TOPICAL (23:17)
[2022-04-28] MEDS: Menthol/Lanolin/Calamine/Znox 113 GM Tube 1 APPLIC TOPICAL (23:18)
[2022-04-29] MEDS: Acetaminophen 325 MG Tablet 650 MG PO (02:55)
[2022-04-29 03:07] VITALS: BP 141/89; PULSE 49; RESP 16; TEMP 36.6; O2SAT 96
[2022-04-29 06:53] LABS: Absolute Lymphocyte Count 0.76 X10^3/uL (0.83-4.51); Basophil# 0.03 X10^3/uL; Basophil% 0.4 % (0-1); Eosinophil# 0.12 X10^3/uL; Eosinophils% 1.6 % (0-5); Hemoglobin 11.9 g/dL (12.0-15.0); Lymphocyte # 0.76 X10^3/ul (0.83-4.51); Mean Corpuscular Hgb 33.1 pg (27.0-32.0); Mean Corpuscular Volume 94.4 fL (81-99); Mean Platelet Vol. 12.3 fl (6.2-12.0); Monocyte% 9.2 % (0-10); NRBC Flagged by Analyzer 0.4 % (0-5); Neutrophil # 5.98 X10^3/uL (2.7-7.7); Neutrophil % 78.3 % (47-70); Platelet Count 175 K/mm3 (150-450); RBC Distribution Width CV 16.5 % (11.6-14.6); RBC Distribution Width SD 56.8 fl (35.1-43.9); White Blood Count 7.6 K/mm3 (4.4-11.0)
[2022-04-29 08:22] VITALS: BP 89/73; PULSE 76; RESP 16; TEMP 36.8; O2SAT 95
--- NOTE | 2022-04-29 08:44 | CASEMGMT ---
Social Work SW called pt's daughter Jody Willis, she states hospice has not contacted them yet to set up a meeting. SW explained will call now and request they call the family as soon as possible to set up a meeting. SW called [facility], informed they did try to call pt's son and daughter and messages left. SW informed they do try to call family every day, number given for family to call also: [phone]. SW called daughter Jody alfonso, gave her the number to call, she will call to set up a meeting. Support given as daughter spoke about what is going on w/her mother. SW remains available for support to family. LIZBET Ricardo
[2022-04-29] MEDS: Citalopram 20 MG Tablet PO (10:06)
[2022-04-29] MEDS: Nystatin Powder 15gm Bottle 1 APPLIC TOPICAL ×2 (10:07→21:08)
[2022-04-29] MEDS: APIXABAN 2.5 MG TABLET (WCH) PO ×2 (10:07→21:08)
[2022-04-29] MEDS: Allopurinol 100 MG Tablet 200 MG PO ×2 (10:07→21:08)
[2022-04-29] MEDS: Pantoprazole Sodium 20 MG Tablet PO (10:07)
[2022-04-29] MEDS: Ensure Plus High Protein 120 ML LIQUID PO ×2 (10:09→21:18)
[2022-04-29] MEDS: DAKIN'S SOL HALF STRENGTH (=0.25%) 1 APPLIC TOPICAL ×2 (10:20→21:09)
[2022-04-29] MEDS: Menthol/Lanolin/Calamine/Znox 113 GM Tube 1 APPLIC TOPICAL ×2 (10:20→21:09)
--- NOTE | 2022-04-29 10:50 | CASEMGMT ---
Addendum entered by Laureen Lugo 04/29/22 11:12: Social Work SW spoke w/RN at [facility]. They do anticipate being able to take pt back tomorrow on hospice if family signs w/hospice. SW called daughter back, confirmed they do want pt to return to [facility] at discharge, let her know if they sign w/hospice she may be able to return tomorrow after their meeting. As per daughter, this was the first availability hospice had to meet w/them, she states they are to call her should they have an appointment become open for today. SW faxed updates to [facility] as all weekend staff may not have access to [facility]. Plan: family to meet w/hospice tomorrow. Anticipate pt will return to [facility] tomorrow on hospice. Green sheet placed on chart in anticipation of discharge tomorrow. LIZBET Ricardo Original Note: Social Work SW called [facility], meeting set up for tomorrow at 9:30 with family. SW called [facility] to see if pt can return tomorrow on hospice. Message left for RN to call this SW back. LIZBET Ricardo
[2022-04-29] MEDS: HYDROmorphone 0.5 MG/0.5 ML SYRINGE 0.25 MG IV ×2 (11:10→21:18)
--- NOTE | 2022-04-29 11:27 | NURSING ---
pt yelling out after dressing change that she is in pain and does not feel well. when nursing enters room. pt yells pt to leave room. notified dr martinez that pt in pain and yelling out. pain medication ordered. also notified that bp low, and code status not addressed. bolus ordered
[2022-04-29 11:29] VITALS: BP 69/59; PULSE 112; RESP 18; TEMP 36.4; O2SAT 94
[2022-04-29] MEDS: Lactated Ringers 1,000 ML 999 ML IV (11:51)
[2022-04-29 13:05] VITALS: BP 83/53; PULSE 78; RESP 16; TEMP 36.4; O2SAT 94
--- NOTE | 2022-04-29 13:41 | PN.HOSP_ITS ---
Reason for Visit Reason for Visit: Altered mental status Subjective Subjective Mrs. Gunter is an 87-year-old white female who presented to the emergency department at [facility] on 04/28/2022 with altered mental status from [facility]. She had evidently been progressively becoming more altered with regards to her mentation. She was noted to have pressure wounds predominantly on her buttocks and the nursing facility was concerned that she was developing sepsis related to these. At baseline she is alert and oriented x3. Her initial blood pressure was 78/60 at the time of presentation however improved to 117/105 after gentle hydration. Oxygen saturations were stable on room air. She does have a documented history of HFrEF however we have never had any echocardiograms done here recently. She was given Unasyn in the emergency department. Family had requested hospice consultation in the emergency department however hospice was unable to meet with the family at that time and she was admitted to the medical floor for ongoing care and hospice meeting. The time of my evaluation today she was sleeping and appeared comfortable. Since that time she has developed acute hypotension and had systolic blood pressures as low as 70. We did give her a 1 L bolus of fluids and she seems to be responding however I am hesitant to place her on continuous IV fluids with her documented history of poor EF. She appears to be overall poorly nourished at this time. Objective Data Objective Data Vital Signs: Vital Signs Temp Pulse Resp BP Pulse Ox O2 Del Method 97.5 F L 78 16 83/53 L 94 Room Air 04/29/22 13:05 04/29/22 13:05 04/29/22 13:05 04/29/22 13:05 04/29/22 13:05 04/29/22 13:05 Oxygen Delivery Method Room Air Weight: 67.4 kg Body Mass Index (BMI) 24.0 Intake & Output: Intake and Output for Last 24 Hours 04/27/22 04/28/22 04/29/22 23:59 23:59 23:59 Intake Total 1032 / 1032 1982.75 / 1981.75 Output Total 450 / 450 350 / 350 Balance 582 / 582 1632.75 / 1632.75 Lab / Micro Data Result Diagrams: 04/29/22 05:26 04/28/22 14:05 Labs: Laboratory Results - last 24 hr 04/28/22 14:05: WBC 8.3, RBC 4.32, Hgb 14.2, Hct 40.7, MCV 94.2, MCH 32.9 H, MCHC 34.9, RDW Std Deviation 55.4 H, RDW Coeff of Sanjuanita 16.2 H, Plt Count 203, MPV 12.2 H, Immature Gran % (Auto) 0.500, Neut % (Auto) 81.9 H, Lymph % (Auto) 8.2 L , [place] % (Auto) 8.2, Eos % (Auto) 0.8, Baso % (Auto) 0.4, Absolute Neuts (auto) 6.8, Absolute Lymphs (auto) 0.68 L, Nucleated RBC % 0.5 04/28/22 14:05: PT 21.0 H, INR 1.9, APTT 40.1 H 04/28/22 14:05: Sodium 132 L, Potassium 4.4, Chloride 97 L, Carbon Dioxide 25.0, Anion Gap 10, BUN 52 H, Creatinine 1.75 H, Est GFR (MDRD) Af Amer 35 L, Est GFR (MDRD) Non-Af 29 L, BUN/Creatinine Ratio 29.7 H, Glucose 120 H, Calcium 9.1, Total Bilirubin 0.80, AST 11 L, ALT 17, Alkaline Phosphatase 51, Troponin I High Sens 13, Total Protein 6.1 L, Albumin 2.6 L, Globulin 3.5, Albumin/Globulin Ratio 0.7 L 04/28/22 14:05: Lactic Acid 2.1 H* 04/28/22 15:40: Urine Color Yellow, Urine Clarity Clear, Urine pH 5.0, Ur Specific [place] 1.015, Urine Protein 15 H, Urine Glucose (UA) Normal, Urine Ketones Negative, Urine Occult Blood Negative, Urine Nitrite Negative, Urine Bilirubin Negative, Urine Urobilinogen Normal, Ur Leukocyte Esterase 100 H, Urine RBC 0 SEEN, Urine WBC 0-5 SEEN, Ur Squamous Epith Cells 0-5 SEEN, Urine Bacteria 2+, Urine Mucus 0 SEEN 04/28/22 17:17: Ammonia 37.0 H 04/28/22 18:30: Lactic Acid 1.4 04/29/22 05:26: WBC 7.6, RBC 3.60 L, Hgb 11.9 L, Hct 34.0 L, MCV 94.4, MCH 33.1 H, MCHC 35.0, RDW Std Deviation 56.8 H, RDW Coeff of Sanjuanita 16.5 H, Plt Count 175, MPV 12.3 H, Immature Gran % (Auto) 0.500, Neut % (Auto) 78.3 H, Lymph % (Auto) 10.0 L, Fallon % (Auto) 9.2, Eos % (Auto) 1.6, Baso % (Auto) 0.4, Absolute Neuts (auto) 6.0, Absolute Lymphs (auto) 0.76 L, Nucleated RBC % 0.4 Micro: Microbiology 04/28/22 15:30 Ulcer, Decubitus - Buttock Gram Stain - Final 04/28/22 15:30 Ulcer, Decubitus - Buttock Wound Culture - Preliminary GNR lactose pickler helper 04/28/22 15:35 Urine Catheter - Palma Urine Culture - Preliminary GNR lactose pickler helper Radiography Diagnostic Testing: Radiology Impression Brain CT 04/28/22 13:10 IMPRESSION: No acute intracranial process identified. Chronic involutional and white matter changes. Electronically Signed: Corinna Dunham MD at 14:52 EDT , Chest X-Ray 04/28/22 14:32 IMPRESSION: Cardiomegaly with mild pleural effusions. Bibasilar atelectasis or inflammation. Electronically Signed: Corinna Dunham MD at 14:47 EDT , Physical Exam Const no apparent distress and average body habitus Constitutional Narrative: Elderly white female, lying in bed, appears comfortable at this time, sleeping, appears nontoxic HEENT head/scalp atraumatic Head and Scalp: normocephalic Resp normal respiratory effort, no retractions, no use of accessory muscles and clear to auscultation bilaterally Auscultation: Negative for rales, rhonchi or wheezes Cardio regular rate, regular rhythm, S1 normal heart sound, S2 normal heart sound, no murmurs, no rub, no gallops and no clicks GI normal to inspection, nondistended, normoactive bowel sounds, soft to palpation and non-tender Extremity Extremity Narrative: Significant bilateral lower extremity edema that is pitting in nature, no cyanosis or clubbing Skin Skin Narrative: Large sacral decubitus, scattered ecchymotic areas and very fragile looking skin Neuro Neuro Narrative: Patient is currently sleeping Psych Psych Narrative: Unable to She does have documented history of HFrEF patient is currently scree test Assessment & Plan Assessment/Plan (1) Toxic metabolic encephalopathy: (2) Decubitus ulcer: (3) Acute kidney injury: (4) Debility: (5) Severe malnutrition: (6) Hypotension: (7) Lactic acidosis: PLAN: Plan Toxic/metabolic encephalopathy -Suspect multifactorial--> possible infection/WILLOW/hypotension -CT brain done on admission showing only chronic involutional and white matter changes with no acute intracranial process -Continue to monitor Hypotension -Suspect multifactorial with dehydration and possible infection -We will fluid bolus as needed carefully with reported EF being low -Wound culture shows gram-negative lactose pickler helper/urine culture shows gram-negative jaelyn lactose pickler helper -Blood cultures are pending -Patient does not seem to meet sepsis criteria however on admission Lactic acidosis -Resolved with hydration WILLOW -Serum creatinine appears to be between 0.9 and 1.1 -Serum creatinine on admission was 1.75 -Continue with gentle hydration given history of cardiomyopathy -Avoid nephrotoxins -Hold home Bumex -Repeat BMP in a.m. Debility -PT/OT consultation -Family wanted discussed with hospice and plan meeting is for tomorrow Severe malnutrition -Liberalize diet -Add supplements -Add Avinash -Dietitian consultation History of gout -continue allopurinol Atrial fibrillation/cardiomyopathy -Currently rate controlled -Continue apixaban -Hold carvedilol given hypotension -With reported cardiomyopathy however we do not have a recent echocardiogram here -Upon admission EF was reported to be in the 30s to 40s History of esophagitis -Continue omeprazole IBS -Continue home colestipol -Continue home Bentyl -Restart acidophilus at discharge Anxiety/depression -Hold home lorazepam-->was as needed at 0.5 mg with blood pressure issues DVT prophylaxis -Home apixaban CODE STATUS -DNR-CCA no ETT per d/w daughter Disposition -Continue with treatment as is at this point -Plan is for family meeting with hospice tomorrow Charges/Coding Visit Charges Inpatient E&M: 12805 Subs Hosp L2
[2022-04-29 14:28] LABS: Anion Gap 11 (5-15); BUN 50 mg/dL (7-18); BUN/Creat Ratio 31.1 RATIO (10-20); Calcium,Total 8.1 mg/dL (8.5-10.1); Chloride 103 mmol/L (98-107); Creatinine, Serum 1.61 mg/dL (0.55-1.02); EST Glomerular Filtration Rate 32 mL/min (>60); Est Glom Filt Rate - Afr Amer 39 mL/min (>60); Estimated Creatinine Clearance 22.61 ml/min; Glucose 129 mg/dL (74-106); Potassium 3.9 mmol/L (3.5-5.1); Sodium Level 137 mmol/L (136-145)
[2022-04-29] MEDS: 0.9% Normal Saline 1,000 ML 60 ML IV (15:07)
[2022-04-29 16:31] VITALS: BP 85/57; PULSE 76; RESP 16; TEMP 36.8; O2SAT 88; O2SAT 94
[2022-04-29 20:28] VITALS: BP 95/58; PULSE 69; RESP 18; TEMP 36.5; O2SAT 94
[2022-04-29] MEDS: 0.9% Saline Lock 10 ML Syringe IV (21:18)
[2022-04-30 02:30] VITALS: BP 93/64; PULSE 96; RESP 16; TEMP 36.7; O2SAT 98
[2022-04-30 05:32] VITALS: BMI 23.9
[2022-04-30 05:36] VITALS: BP 83/46; PULSE 60; RESP 16; TEMP 36.2; O2SAT 99
[2022-04-30 06:14] LABS: Absolute Lymphocyte Count 0.77 X10^3/uL (0.83-4.51); Absolute Neutrophil Count 4.8 X10^3/uL (2.0-7.7); Basophil# 0.04 X10^3/uL; Basophil% 0.6 % (0-1); Eosinophil# 0.15 X10^3/uL; Eosinophils% 2.3 % (0-5); Hematocrit 35.2 % (37-47); Hemoglobin 11.9 g/dL (12.0-15.0); Lymphocyte # 0.77 X10^3/ul (0.83-4.51); Mean Corp Hgb Conc 33.8 g/dL (32-36); Mean Corpuscular Hgb 32.2 pg (27.0-32.0); Mean Corpuscular Volume 95.4 fL (81-99); Mean Platelet Vol. 11.8 fl (6.2-12.0); Monocyte% 9.3 % (0-10); NRBC Flagged by Analyzer 0.3 % (0-5); Neutrophil # 4.83 X10^3/uL (2.7-7.7); Neutrophil % 75.2 % (47-70); Platelet Count 174 K/mm3 (150-450); RBC Distribution Width CV 16.6 % (11.6-14.6); RBC Distribution Width SD 57.5 fl (35.1-43.9); Red Blood Count 3.69 M/mm3 (4.2-5.4); White Blood Count 6.4 K/mm3 (4.4-11.0)
[2022-04-30 07:11] LABS: Anion Gap 10 (5-15); BUN 46 mg/dL (7-18); BUN/Creat Ratio 33.1 RATIO (10-20); Calcium,Total 8.1 mg/dL (8.5-10.1); Chloride 105 mmol/L (98-107); Creatinine, Serum 1.39 mg/dL (0.55-1.02); EST Glomerular Filtration Rate 38 mL/min (>60); Est Glom Filt Rate - Afr Amer 46 mL/min (>60); Estimated Creatinine Clearance 26.19 ml/min; Glucose 85 mg/dL (74-106); Magnesium 1.5 mg/dL (1.6-2.6); Phosphorus 3.4 mg/dL (2.5-4.9); Potassium 3.6 mmol/L (3.5-5.1); Sodium Level 137 mmol/L (136-145)
[2022-04-30 08:59] VITALS: BP 89/59; PULSE 81; RESP 16; TEMP 36.4; O2SAT 94
[2022-04-30] MEDS: Pantoprazole Sodium 20 MG Tablet PO (09:43)
[2022-04-30] MEDS: Menthol/Lanolin/Calamine/Znox 113 GM Tube 1 APPLIC TOPICAL (09:43)
[2022-04-30] MEDS: Allopurinol 100 MG Tablet 200 MG PO (09:44)
[2022-04-30] MEDS: APIXABAN 2.5 MG TABLET (WCH) PO (09:44)
[2022-04-30] MEDS: DAKIN'S SOL HALF STRENGTH (=0.25%) 1 APPLIC TOPICAL (09:44)
[2022-04-30] MEDS: Citalopram 20 MG Tablet PO (09:44)
[2022-04-30] MEDS: Nystatin Powder 15gm Bottle 1 APPLIC TOPICAL (09:45)
[2022-04-30] MEDS: Ensure Plus High Protein 120 ML LIQUID PO (09:47)
--- NOTE | 2022-04-30 11:33 | PCM.DC.SUM ---
Providers Date of Admission: 04/28/22 Date of Discharge: 04/30/22 Primary Care Physician: CIERA Villasenor Consultations 04/28/22 18:41 Consult: Onc/Wound/utility system operator Routine Comment: Reason for Consult:: decub Reason For Visit: ENCEPHALOPATHY Diagnosis Discharge Diagnosis (1) Toxic metabolic encephalopathy: Status: Acute Code(s): G92.8 - Other toxic encephalopathy (2) Decubitus ulcer: Status: Acute Code(s): L89.90 - Pressure ulcer of unspecified site, unspecified stage (3) Acute kidney injury: Status: Acute Code(s): N17.9 - Acute kidney failure, unspecified (4) Debility: Status: Acute Code(s): R53.81 - Other malaise (5) Severe malnutrition: Status: Acute Code(s): E43 - Unspecified severe protein-calorie malnutrition (6) Hypotension: Status: Acute Code(s): I95.9 - Hypotension, unspecified (7) Lactic acidosis: Status: Acute Code(s): E87.20 - Acidosis, unspecified Medications at Discharge Home Medications citalopram 20 mg tablet 20 mg PO DAILY 04/18/21 lorazepam 0.5 mg tablet 0.5 mg PO PRN PRN ANXIETY 06/17/21 dicyclomine 10 mg capsule 10 mg PO .qid PRN abdominal cramping #180 caps 07/19/21 omeprazole 20 mg capsule,delayed release 20 mg PO QAM #90 caps 07/19/21 colestipol 1 gram tablet 1 g PO QHS PRN diarrhea #30 tabs 11/25/21 apixaban 2.5 mg tablet (Eliquis) 2.5 mg PO BID AFIB 04/28/22 levofloxacin 750 mg tablet 750 mg PO Q48H #8 tabs 04/30/22 Hospital Course Operations None Procedures EKG and - (CT brain/chest x-ray) Summary of Care Provided Minutes Spent on Discharge: 36 Hospital Course: Mrs. Gunter is an 87-year-old white female who presented to the emergency department at [facility] on 04/28/2022 with altered mental status from [facility].? She had evidently been progressively becoming more altered with regards to her mentation.? She was noted to have pressure wounds predominantly on her buttocks and the nursing facility was concerned that she was developing sepsis related to these.? At baseline she is alert and oriented x3.? Her initial blood pressure was 78/60 at the time of presentation however improved to 117/105 after gentle hydration.? Oxygen saturations were stable on room air.? She does have a documented history of HFrEF however we have never had any echocardiograms done here recently.? She was given Unasyn in the emergency department.? Family had requested hospice meeting however hospice was not able to meet with the patient and the family in the emergency department shows she was admitted to the medical floor and placed on broad-spectrum antibiotics. Cultures were obtained of the wound, urine, and blood. Blood cultures were pending at the time of discharge however urine culture showed E. coli in the wound culture showed E. coli with an unidentified gram-positive jaelyn. The E. coli was a fairly sensitive organism. She was given some gentle fluid boluses for blood pressure support as she was hypotensive again after being admitted to the medical floor. She was given a liter and then placed on 60 cc. Her renal function did improve some however was not normalized at discharge. Hospice was able to meet with the family on the a.m. of 04/30/2022 and the decision to admit the patient to the acute inpatient hospice unit was made. Given her current cultures I have recommended ongoing Levaquin 750 mg every other day for the next 8 days to complete a 10-day course of antibiotics to cover her wound and her urine. This would also cover any positive blood cultures that would result after discharge. She is able to be discharged to the inpatient hospice unit on 04/30/2022 in stable condition. Discharge diagnoses: Toxic/metabolic encephalopathy-resolving Hypotension Lactic acidosis WILLOW Debility CKD stage IIIa Severe malnutrition History of gout Atrial fibrillation History of cardiomyopathy History of esophagitis IBS Anxiety Depression Physical Exam Const alert, no apparent distress and average body habitus Constitutional Narrative: Elderly white female, lying in bed, appears comfortable at this time, awake, oriented to self and place but not time General Appearance: cooperative, comfortable, well kempt and well developed HEENT normocephalic, head/scalp atraumatic and moist oral mucous membranes; Negative for hearing grossly normal bilaterally HEENT Narrative: Dentition is poor, melon is 2, no thrush, mild to moderate hearing loss Eyes PERRL, EOMs intact bilaterally and conjunctivae normal Eyes Narrative: No scleral icterus Neck no lymphadenopathy and supple Neck Narrative: Trachea midline, no thyroid enlargement Resp normal respiratory effort, no retractions, no use of accessory muscles and clear to auscultation bilaterally Resp Narrative: Diminished at bases bilaterally but deep respiratory effort is poor Auscultation: Negative for rales, rhonchi or wheezes Cardio regular rate, regular rhythm, S1 normal heart sound, S2 normal heart sound, no murmurs, no rub, no gallops and no clicks GI normal to inspection, nondistended, normoactive bowel sounds, soft to palpation and non-tender Extremity Extremity Narrative: Significant bilateral lower extremity edema that is pitting in nature, no cyanosis or clubbing Skin no jaundice Skin Narrative: Large sacral decubitus, scattered ecchymotic areas and very fragile looking skin, no rash Neuro CN's II-XII intact bilaterally and moves all extremities Neuro Narrative: Significant generalized weakness Sensorium / Orientation: awake, alert, oriented to person and oriented to place; Negative for oriented to time Speech: speech normal Psych Psych Narrative: Very pleasant, mildly confused, answers questions appropriately Weight / BMI Weight Weight: 67.5 kg Body Mass Index (BMI) 23.9 ABG / Lab / Microbiology Data Result Diagrams: 04/30/22 05:30 04/30/22 05:30 Laboratory: Laboratory Results - last 24 hr 04/29/22 05:26: Sodium 137, Potassium 3.9, Chloride 103, Carbon Dioxide 23.0, Anion Gap 11, BUN 50 H, Creatinine 1.61 H, Estim Creat Clear Calc 22.61, Est GFR (MDRD) Af Amer 39 L, Est GFR (MDRD) Non-Af 32 L, BUN/Creatinine Ratio 31.1 H, Glucose 129 H, Calcium 8.1 L 04/30/22 05:30: WBC 6.4, RBC 3.69 L, Hgb 11.9 L, Hct 35.2 L, MCV 95.4, MCH 32.2 H, MCHC 33.8, RDW Std Deviation 57.5 H, RDW Coeff of Sanjuanita 16.6 H, Plt Count 174, MPV 11.8, Immature Gran % (Auto) 0.600, Neut % (Auto) 75.2 H, Lymph % (Auto) 12.0 L, [place] % (Auto) 9.3, Eos % (Auto) 2.3, Baso % (Auto) 0.6, Absolute Neuts (auto) 4.8, Absolute Lymphs (auto) 0.77 L, Nucleated RBC % 0.3 04/30/22 05:30: Sodium 137, Potassium 3.6, Chloride 105, Carbon Dioxide 22.0, Anion Gap 10, BUN 46 H, Creatinine 1.39 H, Estim Creat Clear Calc 26.19, Est GFR (MDRD) Af Amer 46 L, Est GFR (MDRD) Non-Af 38 L, BUN/Creatinine Ratio 33.1 H, Glucose 85, Calcium 8.1 L, Phosphorus 3.4, Magnesium 1.5 L Microbiology: Microbiology 04/28/22 15:30 Ulcer, Decubitus - Buttock Gram Stain - Final 04/28/22 15:30 Ulcer, Decubitus - Buttock Wound Culture - Final Escherichia coli Gram positive jaelyn 04/28/22 15:35 Urine Catheter - Palma Urine Culture - Final Escherichia coli D/C Instructions Discharge Diet: No restrictions Meaningful Use Info Meaningful Use Diagnoses (Choose all that apply): None applicable Discharge Plan Admission Admit Date/Time: 04/28/22 18:03 Primary Reason for Your Visit: Confusion Attending Provider: Marcelle Asencio Primary Care Provider: Felicia Killian NP Consulting Providers: Chitra Lambert Discharge Orders/Prescriptions Prescriptions: New levofloxacin 750 mg tablet 750 mg PO Q48H Qty: 8 0RF Rx Instructions: every other day for 8 days Continued citalopram 20 mg tablet 20 mg PO DAILY omeprazole 20 mg capsule,delayed release(DR/EC) 20 mg PO QAM Qty: 90 3RF dicyclomine 10 mg capsule 10 mg PO .qid PRN (Reason: abdominal cramping) Qty: 180 1RF lorazepam 0.5 mg tablet 0.5 mg PO PRN PRN (Reason: ANXIETY) Label Comments: TAKE 1 TABLET BY MOUTH DAILY NEEDED Eliquis 2.5 mg tablet 2.5 mg PO BID colestipol 1 gram tablet 1 g PO QHS PRN (Reason: diarrhea) Qty: 30 2RF Discontinued allopurinol 100 mg tablet 200 mg PO BID omega-3 fatty acids [Fish Oil Concentrate] 1,000 mg Capsule 1,000 mg PO DAILY potassium chloride 10 mEq tablet extended release 10 meq PO DAILY carvedilol 3.125 mg tablet 3.125 mg PO BID ascorbic acid (vitamin C) [Vitamin C] 500 mg Tablet 1,000 mg PO DAILY bumetanide 1 mg tablet 1 mg PO DAILY Lactobacillus acidophilus [Acidophilus] 500 million cell Tablet 500 mmu cells PO DAILY Referrals / Follow Up: Felicia Killian HEAD KILN OPERATOR, HEAD KILN OPERATOR-C [Primary Care Provider] - Disposition Disposition (needs filled in before D/C Order can be placed): Hospice in Medical Facility Charges/Coding Visit Charges Inpatient E&M: 84772 Disch Hosp >30min
--- NOTE | 2022-04-30 12:57 | NURSING ---
reoprt given to in city attorney
[2022-04-30] MEDS: 0.9% Saline Lock 10 ML Syringe IV (13:05)
[2022-04-30] MEDS: Acetaminophen 325 MG Tablet 650 MG PO (13:06)
[2022-04-30 13:39] VITALS: BP 91/67; PULSE 70; RESP 16; TEMP 36.7; O2SAT 93
== END 2022-04-30 13:39 | disposition hospice, inpatient (51) | DRG 682 ==
LOC: ED 16:36 → MS3 18:24
PROVIDERS: Admitting Provider Internal Medicine; Emergency Provider Emergency Medicine; PCP Nurse Practitioner Family; Visit Provider Internal Medicine
DX: N17.9 Acute kidney failure, unspecified (principal); E43 Unspecified severe protein-calorie malnutrition; G92.8 Other toxic encephalopathy; E87.20 Acidosis, unspecified; I13.0 Hypertensive heart and chronic kidney disease with heart failure and stage 1 through stage 4 chronic kidney disease, or unspecified chronic kidney disease; I50.22 Chronic systolic (congestive) heart failure; I42.9 Cardiomyopathy, unspecified; L89.150 Pressure ulcer of sacral region, unstageable; I95.9 Hypotension, unspecified; I48.91 Unspecified atrial fibrillation; N18.31 Chronic kidney disease, stage 3a; F41.9 Anxiety disorder, unspecified; K21.00 Gastro-esophageal reflux disease with esophagitis, without bleeding; K58.9 Irritable bowel syndrome, unspecified; F32.A Depression, unspecified; B96.20 Unspecified Escherichia coli [E. coli] as the cause of diseases classified elsewhere; R53.81 Other malaise; Z66 Do not resuscitate; Z68.23 Body mass index [BMI] 23.0-23.9, adult; Z79.01 Long term (current) use of anticoagulants; Z79.899 Other long term (current) drug therapy
CPT/HCPCS: 36415; 70450; 71045; 80048; 80053; 81001; 82140; 83605; 83735; 84100; 84484; 85025; 85610; 85730; 87040; 87070; 87077; 87086; 87088; 87186; 87205; 93005; 99285; J7030; J7050; J7120; A4216; J0295